=== PATIENT | female | born 1975 | race African-American/Black ===

== ENCOUNTER 2020-05-07 22:10 | Emergency (ER) | payer OTHER ==
[~2020-05-07] VITALS: Ht 160 cm; Wt 95.3 kg
[~2020-05-07 22:10] MED LIST: BACTRIM DS TAB1 EACH; FLEXERIL PO; IBUPROFEN 800800 M1 PO
[2020-05-07] MEDS ORDERED: CLARITIN10 MG (22:42)
[2020-05-07 23:00] LABS: HEMATOCRIT 40.6 % (37.0-47.0); HEMOGLOBIN 13.5 gm/dL (12.0-15.0); MCH 27.6 pg (26.0-34.0); MCHC 33.3 g/dL (28.0-37.0); MCV 82.8 fL (80.0-100.0); PLATELET COUNT 255 thou/uL (150-400); WBC 10.7 thou/uL (4.0-11.0)
[2020-05-07 23:06] LABS: ANION GAP 13 mmol/L (7-16); BUN 12 mg/dL (7-18); CALCIUM 9.6 mg/dL (8.5-10.1); CHLORIDE 97 mmol/L (98-107); CO2 27 mmol/L (21-32); CREATININE 1.3 mg/dL (0.6-1.0); GLUCOSE 196 mg/dL (74-106); POTASSIUM 3.1 mmol/L (3.5-5.1); SODIUM 137 mmol/L (136-145)
[2020-05-07 23:16] LABS: ALBUMIN 3.9 g/dL (3.4-5.0); SGOT 16 U/L (15-37); SGPT 31 U/L (30-65); TOTAL BILIRUBIN 0.5 mg/dL (0.2-1.0); TOTAL PROTEIN 8.5 g/dL (6.4-8.2); TROPONIN-I <0.06 ng/mL (<0.06)
[2020-05-07 23:57] LABS: AMP/METHAMP Negative (Negative); BARBITURATES Negative (Negative); BENZODIAZEPINES Negative (Negative); COCAINE Negative (Negative); METHADONE Negative (Negative); OPIATES Negative (Negative); PCP Negative (Negative)
[2020-05-08 00:15] LABS: ABSOLUTE NEUTROPHILS 7.5 thou/uL (1.4-8.2)
[2020-05-08 00:16] LABS: PLATELET ESTIMATE NORMAL
[2020-05-08 00:39] LABS: APTT 29.4 Seconds (24.5-32.8); INR 1.1; PROTIME 11.4 Seconds (9.3-11.4)
[2020-05-08 02:36] LABS: URINE BILIRUBIN NEGATIVE (Negative); URINE BLOOD 2+ (Negative); URINE CLARITY CLEAR; URINE COLOR YELLOW; URINE GLUCOSE-RANDOM* NEGATIVE (Negative); URINE KETONES NEGATIVE (Negative); URINE LEUKOCYTES-REFLEX 2+ (Negative); URINE NITRITE-REFLEX NEGATIVE (Negative); URINE PROTEIN (DIPSTICK) TRACE (Negative); URINE SPECIFIC GRAVITY <= 1.005 (1.005-1.035); URINE UROBILINOGEN 0.2 E.U./dl (0.2-1.0)
[2020-05-08 02:51] LABS: BACTERIA-REFLEX 1-9 Few /HPF (None Seen); CASTS None Seen /LPF (None Seen); CRYSTALS None Seen /LPF (None Seen); MUCUS 0-3 Light strn/LPF (None Seen); SQUAMOUS 0-3 Few /LPF (0-3); URINE RBC 0-2 Rare /HPF (0-2)
[2020-05-08 04:29] VITALS: BP 126/90
[2020-05-08] MEDS ORDERED: NORCO 5-325 TA1 EAC2 PO (04:35)
[2020-05-08] MEDS ORDERED: BACTRIM DS TAB1 EACH PO (04:35)
[2020-05-08] MEDS ORDERED: ONDANSETRON ODT8 MG PO (04:35)
--- NOTE | 2020-05-08 07:27 | EKG ---
[facility] [address] [place] [address] ELECTROCARDIOGRAM REPORT Name: DOE TAMEZ Room #: DEP HOLLIS Jacobo#: [id number] Admission: 05/07/20 Attend Phys: Discharge: 05/08/20 Date of : 79 Report #: [id number] THIS REPORT FOR: cc: FAM - No family physician/PCP FAM - No family physician/PCP Manoj Driscoll MD FACC ~ <ELECTRONICALLY SIGNED> By: Manoj Driscoll MD, FACC 05/08/20 0727 15 15 Manoj Driscoll MD, FACC /EPI
--- NOTE | 2020-05-08 12:39 | EKG ---
[facility] [address] [place] [address] ELECTROCARDIOGRAM REPORT Name: DOE TAMEZ Room #: DEP HOLLIS Jacobo#: [id number] Admission: 05/07/20 Attend Phys: Discharge: 05/08/20 Date of : 79 Report #: [id number] THIS REPORT FOR: cc: FAM - No family physician/PCP FAM - No family physician/PCP Crow Garcia MD ~ <ELECTRONICALLY SIGNED> By: Crow Garcia MD 05/08/20 1239 Crow Garcia MD /EPI
== END 2020-05-08 04:38 | disposition home or self-care (01) ==
LOC: ER 22:10
PROVIDERS: Emergency Medicine
DX: A41.9 Sepsis, unspecified organism (principal); N12 Tubulo-interstitial nephritis, not specified as acute or chronic; E87.6 Hypokalemia; R00.0 Tachycardia, unspecified; R73.9 Hyperglycemia, unspecified; Z90.49 Acquired absence of other specified parts of digestive tract; Z90.710 Acquired absence of both cervix and uterus; Z79.899 Other long term (current) drug therapy; Z88.0 Allergy status to penicillin; Z91.013 Allergy to seafood

== ENCOUNTER 2020-05-17 13:02 | Emergency (ER) | payer OTHER ==
[~2020-05-17] VITALS: Ht 160 cm; Wt 90.7 kg
[~2020-05-17 13:02] MED LIST changes: +BACTRIM DS TAB1 EACH PO; +CLARITIN10 MG; +NORCO 5-325 TA1 EAC2 PO; +ONDANSETRON ODT8 MG PO
[2020-05-17 14:27] LABS: HEMATOCRIT 40.5 % (37.0-47.0); HEMOGLOBIN 13.2 gm/dL (12.0-15.0); MCH 26.8 pg (26.0-34.0); MCHC 32.6 g/dL (28.0-37.0); MCV 82.1 fL (80.0-100.0); RBC 4.93 mil/uL (4.20-5.00); RDW 14.7 % (10.5-14.5); WBC 7.4 thou/uL (4.0-11.0)
[2020-05-17 14:59] LABS: ANION GAP 10 mmol/L (7-16); BUN 6 mg/dL (7-18); CALCIUM 10.2 mg/dL (8.5-10.1); CHLORIDE 101 mmol/L (98-107); CO2 28 mmol/L (21-32); CREATININE 1.4 mg/dL (0.6-1.0); GLUCOSE 106 mg/dL (74-106); SODIUM 139 mmol/L (136-145)
[2020-05-17 15:06] LABS: DIRECT BILIRUBIN < 0.1 mg/dL (<0.1-0.2); SGOT 27 U/L (15-37); SGPT 44 U/L (14-59); TOTAL BILIRUBIN 0.3 mg/dL (0.2-1.0); TOTAL PROTEIN 8.2 g/dL (6.4-8.2)
[2020-05-17 15:51] LABS: URINE BILIRUBIN NEGATIVE (Negative); URINE BLOOD TRACE (Negative); URINE CLARITY CLOUDY; URINE COLOR YELLOW; URINE GLUCOSE-RANDOM* NEGATIVE (Negative); URINE KETONES NEGATIVE (Negative); URINE NITRITE-REFLEX NEGATIVE (Negative); URINE PROTEIN (DIPSTICK) NEGATIVE (Negative); URINE SPECIFIC GRAVITY >= 1.030 (1.005-1.035); URINE UROBILINOGEN 0.2 E.U./dl (0.2-1.0)
[2020-05-17 16:12] LABS: URINE LEUKOCYTES-REFLEX 1+ (Negative)
[2020-05-17 16:40] LABS: BACTERIA-REFLEX 1-9 Few /HPF (None Seen); CASTS None Seen /LPF (None Seen); CRYSTALS None Seen /LPF (None Seen); SQUAMOUS None Seen /LPF (0-3); URINE RBC 0-2 Rare /HPF (0-2); URINE WBC-REFLEX 6-15 Few /HPF (0-5)
[2020-05-17] MEDS ORDERED: LOPERAMIDE 2 MG2 M1 PO (16:55)
[2020-05-17 17:11] VITALS: BP 119/20
--- NOTE | 2020-05-19 07:43 | EKG ---
[place] [address] [facility] [place] [address] ELECTROCARDIOGRAM REPORT Name: DOE TAMEZ Room #: [facility]P [facility] [id number] Admission: 05/17/20 Attend Phys: Discharge: 05/17/20 Date of : 79 Report #: [id number] [facility] ED Test Date: 2020-05-17 Test Time: 13:53:31 Pat Name: DOE TAMEZ Department: Room: Gender: F Measuring Clerk: juan ramon : 1975 Requested By: Saleem Gray Order Number: [id number] MD: Gurpreet Perez Measurements Intervals [place] Rate: 118 P: 22 NM: 168 QRS: 40 QRSD: 75 T: -1 QT: 331 QTc: 464 Interpretive Statements Sinus tachycardia Nonspecific ST and T wave abnormality Baseline wander in lead(s) V1 Compared to ECG 05/08/2020 01:00:57 No significant changes Electronically Signed On 05-19-2020 7:42:54 CONSERVATION EDUCATOR by Gurpreet Perez [email or web address] <ELECTRONICALLY SIGNED> By: Gurpreet Perez MD, [facility] 05/19/20 0742 1353 1353 Gurpreet Perez MD, FACC /EPI
== END 2020-05-17 17:20 | disposition home or self-care (01) ==
LOC: ER 13:02
PROVIDERS: Emergency Medicine
DX: R19.7 Diarrhea, unspecified (principal); K92.1 Melena; R10.30 Lower abdominal pain, unspecified; R42 Dizziness and giddiness; Z90.49 Acquired absence of other specified parts of digestive tract; Z90.710 Acquired absence of both cervix and uterus; Z79.2 Long term (current) use of antibiotics; Z79.899 Other long term (current) drug therapy; Z91.013 Allergy to seafood; Z88.0 Allergy status to penicillin

== ENCOUNTER 2020-11-03 01:12 | Emergency (ER) | payer OTHER ==
[~2020-11-03] VITALS: Ht 160 cm; Wt 93.4 kg
[~2020-11-03 01:12] MED LIST changes: +LOPERAMIDE 2 MG2 M1 PO
[2020-11-03] MEDS ORDERED: MEDROLDOSEPACK PO (02:17)
[2020-11-03] MEDS ORDERED: FLEXERIL PO (02:17)
[2020-11-03 03:01] VITALS: BP 169/94
== END 2020-11-03 03:02 | disposition home or self-care (01) ==
LOC: ER 01:12
DX: S46.812A Strain of other muscles, fascia and tendons at shoulder and upper arm level, left arm, initial encounter (principal); Z88.0 Allergy status to penicillin; Z91.013 Allergy to seafood; X58.XXXA Exposure to other specified factors, initial encounter; Y93.89 Activity, other specified; Y92.89 Other specified places as the place of occurrence of the external cause; Y99.8 Other external cause status